=== PATIENT | male | born 1960 | race African-American/Black ===

== ENCOUNTER 2016-10-26 07:48 | Day surgery (SDC) | END 2016-10-26 12:52 | disposition home or self-care (01) | DX: Z12.11 Encounter for screening for malignant neoplasm of colon (principal); D12.5 Benign neoplasm of sigmoid colon; I10 Essential (primary) hypertension; E11.9 Type 2 diabetes mellitus without complications; E78.5 Hyperlipidemia, unspecified; K64.9 Unspecified hemorrhoids | CPT/HCPCS: 45380; 45381; 82962; 88305; Z7610 ==

== ENCOUNTER 2016-11-01 14:50 | Day surgery (SDC) | payer OTHER ==
[~2016-11-01] VITALS: Ht 188 cm; Wt 123.5 kg
[~2016-11-01 14:50] MED LIST: ASA 81MG; ATORVASTATIN; BENAZEPRIL; METFORMIN
[2016-11-01 15:21] VITALS: Ht 188 cm; Wt 123.5 kg
[2016-11-01 15:39] VITALS: BP 142/75; PULSE 71; RESP 12
[2016-11-01] MEDS ORDERED: MIDAZOLAM 1 MG/ML 2 ML INJ ONE (16:08)
[2016-11-01] MEDS ORDERED: LIDOCAINE 2% (SDV) 5 ML INJ ONE (16:08)
[2016-11-01] MEDS ORDERED: PROPOFOL 40 ML ONE (16:08)
[2016-11-01] MEDS ORDERED: PROPOFOL 20 ML ONE (16:57)
[2016-11-01 17:49] VITALS: BP 110/81; PULSE 63; RESP 18
--- NOTE | 2016-11-02 05:46 | GILP ---
DATE OF PROCEDURE: 11/01/2016 PREOP DIAGNOSIS: Colon polyps. POSTOP DIAGNOSES: 1. Colonoscopy all the way to the cecum. 2. Large flat polyp in the right colon just distal to the ileocecal valve was removed in pieces using the snare and electrocautery. 3. Sigmoid colon polyp was removed using the snare and electrocautery. 4. Hemorrhoids. PROCEDURE PERFORMED: Colonoscopy and polypectomy. SURGEON: Teena Mcknight MD INDICATION: Mr. Jeffy Laughlin is a 55-year-old male patient who had a history of colon polyps. The patient was scheduled for colonoscopy and polyp removal. The procedure and possible complications were well explained to the patient. He understood and consented to the procedure. DESCRIPTION OF PROCEDURE: Under influence of anesthesia, the colonoscope was carefully introduced in the rectum. Under direct vision it was advanced all the way to the cecum. Findings: The patient had a large flat polyp in the right colon just distal to the ileocecal valve. Using the snare and electrocautery, most of the polyp was removed in pieces. The patient also had a sigmoid colon polyp at 30 cm from the anus and it was also removed using the snare and electrocautery. He had internal hemorrhoids. He tolerated the procedure very well and there was no complication from the procedure. At the end of procedure, he was awake with stable vital signs and he was discharged home to the care of his family. IMPRESSION: Please see postoperative diagnoses. PLAN: Await histopathology report. The timing for the next colonoscopy will be decided after reviewing the biopsy report. Dictated By: MD ZACH Bell/elicia/maurice /Document#: [id number]
== END 2016-11-01 17:53 | disposition home or self-care (01) ==
LOC: GIL 14:50
PROVIDERS: ATTEND Internal Medicine Gastroenterology
DX: D12.5 Benign neoplasm of sigmoid colon (principal); K64.8 Other hemorrhoids; E11.9 Type 2 diabetes mellitus without complications; I10 Essential (primary) hypertension; E78.5 Hyperlipidemia, unspecified; E66.9 Obesity, unspecified; Z68.35 Body mass index [BMI] 35.0-35.9, adult
CPT/HCPCS: 45385; 82962; 88305; J2250; Z7610